=== PATIENT | male | born 1955 | race Caucasian/White ===

== ENCOUNTER → 2020-09-21 | Outpatient (CLI) | payer BC, OTHER ==
[~2020-09-21] MED LIST: AMITRIPTYLINE150 MG PO; ASPIR-TRIN325 MG PO; ASPIRIN 325MG325 MG PO; ASPIRIN CHEWABL81 MG PO; CIPRO250 MG/5 M PO; CLEOCIN HCL300 MG PO; LASIX40 MG PO; LOVENOX SY40 MG/0.4 SQ; MOBIC7.5 MG PO; MULTIVITAMINS1 EAC1 PO; NEURONTIN 400400 MG PO; NORCO 7.5-3251 EACH PO; OMEPRAZOLE20 MG PO; PRINIVIL5 MG PO; SYNTHROID25 MCG PO; VITAMIN C500 M4 PO; [UNRECOGNIZED DRUG - OTHER] PO
== END ==
LOC: KOH-I 09:02
DX: M79.672 Pain in left foot (principal); M20.41 Other hammer toe(s) (acquired), right foot
CPT/HCPCS: 73630